=== PATIENT | male | born 1965 | race Caucasian/White ===

== ENCOUNTER 2020-02-16 18:06 | Emergency (ER) | payer OTHER ==
[~2020-02-16] VITALS: Ht 185.4 cm; Wt 127.0 kg
--- NOTE | ~2020-02-16 | PROC ---
[address] [address] PROCEDURE REPORT Name: LISA LAZO Room: [facility] JYOTSNA Cabezas#: [id number] Admission: 02/16/20 Attend Phys: Discharge: 02/16/20 Date of : 65 Report #: [id number] THIS REPORT FOR: //name// cc: FAM - No family physician/PCP FAM - No family physician/PCP ~ THIS REPORT FOR: //name// For GI report, please see the Provation report in Perceptive 7 content. By: 0656Medical Records Staff WILBERTO /DEBBI
[2020-02-16 18:29] LABS: ABSOLUTE BASOPHILS 0.2 thou/uL (0.0-0.2); ABSOLUTE EOSINOPHILS 0.4 thou/uL (0.0-0.7); ABSOLUTE LYMPHOCYTES 3.4 thou/uL (0.8-5.3); ABSOLUTE MONOCYTES 0.9 thou/uL (0.0-1.2); ABSOLUTE NEUTROPHILS 6.9 thou/uL (1.6-8.1); BASOPHILS 1.3 %; EOSINOPHILS 3.1 %; HEMATOCRIT 51.9 % (42.0-52.0); HEMOGLOBIN 17.7 gm/dL (14.0-18.0); LYMPHOCYTES 29.2 %; MCH 29.1 pg (26.0-34.0); MCHC 34.1 g/dL (28.0-37.0); MCV 85.2 fL (80.0-100.0); MONOCYTES 7.3 %; MPV 8.6 fl. (7.2-11.1); NUCLEATED RBCS 0 /100WBC; PLATELET COUNT* 222 thou/uL (150-400); POLYS 59.1 %; RBC 6.09 mil/uL (4.50-6.00); RDW-CV 14.5 % (10.5-14.5); WBC 11.7 thou/uL (4.0-11.0)
[2020-02-16 18:38] LABS: CALCIUM 8.6 mg/dL (8.5-10.1)
[2020-02-16 18:43] LABS: ALBUMIN 4.1 g/dL (3.4-5.0); TOTAL BILIRUBIN 0.4 mg/dL (<0.1-1.0); TOTAL PROTEIN 7.5 g/dL (6.4-8.2)
[2020-02-16 19:33] VITALS: BP 146/89
--- NOTE | 2020-02-17 11:02 | EKG ---
[place] [address] ELECTROCARDIOGRAM REPORT Name: LISA LAZO Room: [facility]#: [id number] Admission: 02/16/20 Attend Phys: Discharge: 02/16/20 Date of : 65 Date of Service: 02/16/201906 Report #: [id number] THIS REPORT FOR: //name// 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
--- NOTE | 2020-02-18 14:07 | PATH ---
[facility] [address] [place] [address] PATHOLOGY RPT PROCEDURE Name: ADAL LAZO Room: [facility] JYOTSNA Cabezas#: [id number] Admission: 02/16/20 Date of : 65 Discharge: 02/16/20 Report #: [id number] Path Case #: [id number] [facility] Accession Number: [id number] . 01 Material submitted: . esophagus - ESOPHAGEAL BIOPSIES R/O EOSINOPHIL ESOPHAGITIS . 01 Clinical history: . Rule out eosinophilic esophagitis . 02 Diagnosis: Esophageal biopsies: - Moderate chronic esophagitis typical of reflux. See comment. (CINTHIA:kellie; 02/18/2020) [facility] 02/18/2020 1057 [facility] . 02 Comment: Eosinophils are difficult to identify, averaging less than 1 per high power field and therefore eosinophilic (allergic) esophagitis is unlikely. Small fragments of benign skeletal muscle (food/meat) are also present. (CINTHIA:kellie; 02/18/2020) . 02 Electronically signed: . Fred Blancas MD, Pathologist NPI- [id number] . 01 Gross description: . The specimen is received in formalin, labeled "Adal Lazo, esophageal biopsies" and consists of multiple fragments of white-mcneill tissue measuring 0.4 x 0.3 x 0.2 cm in aggregate and are entirely submitted in A1. (JMF; 02/17/2020) JFQ/JFQ 02/17/2020 1536 Local . 02 Pathologist provided ICD-10: K20.9 . 02 CPT . 710787 Specimen Comment: A courtesy copy of this report has been sent to [phone] Specimen Comment: Report sent to Performed at: [address], [place] [id number] MD Rc Smith MD Phone: [phone] Performed at: 02 [facility] [address] [place], [place] [id number] [address] [address] PATHOLOGY RPT PROCEDURE Name: ADAL LAZO Room: [facility] JYOTSNA Cabezas#: [id number] Admission: 02/16/20 Date of : 65 Discharge: 02/16/20 Report #: [id number] Path Case #: [id number] MD Fred Blancas MD Phone: [phone]
--- NOTE | 2020-02-20 10:43 | CON ---
[address] [address] CONSULTATION Name: LISA LAZO Room: [facility] Jocelynn#: [id number] Admission: 02/16/20 Attend Phys: Discharge: 02/16/20 Date of : 65 Report #: [id number] THIS REPORT FOR: //name// cc: ERIC - No family physician/PCP [facility] - No family physician/PCP ~ THIS REPORT FOR: //name// CC: [facility] physician/PCP Renee Hurst DATE OF SERVICE: 02/16/2020 HISTORY OF PRESENT ILLNESS: This is a pleasant 54-year-old male with past medical history significant for hypertension and intermittent dysphagia, who is presenting with food bolus impaction. The patient reports having dinner and inability to swallow since then. The patient is unable to keep solids or liquids down. In the ER, the patient was given glucagon as well as Ativan and this did not relieve his symptoms. He denies any difficulty breathing. Denies prior episodes of food impaction. He does report intermittent dysphagia to solids for several years. This has been getting progressively worse over the course of years, dysphagia happens about twice a month. He denies any other alarm symptoms such as hematemesis, hematochezia, weight loss. PAST MEDICAL HISTORY: Hypertension. PAST SURGICAL HISTORY: The patient had gallbladder surgery, knee surgery. SOCIAL HISTORY: Denies smoking, takes alcohol intermittently. Denies any recreational drug use. FAMILY HISTORY: No family history of colon cancer, esophageal or gastric cancer. REVIEW OF SYSTEMS: A comprehensive 10-point review of systems is negative except for what was mentioned in the HPI. PHYSICAL EXAMINATION: GENERAL: The patient is alert, awake, oriented x 3. HEENT: Pupils are equal, round, reactive to light and accommodation. Mucous membranes are moist. There is no congestion. LUNGS: Clear to auscultation bilaterally. CARDIOVASCULAR: Rate and rhythm regular, S1, S2 present. ABDOMEN: Soft. There is no distention, guarding or rigidity. EXTREMITIES: Warm, well perfused. There is no edema. SKIN: [place] [address] CONSULTATION Name: VIOLETLISA Room: [facility]#: [id number] Admission: 02/16/20 Attend Phys: Discharge: 02/16/20 Date of : 65 Report #: [id number] ASSESSMENT AND PLAN: A pleasant 54-year-old gentleman presenting with food bolus impaction, proceed with EGD and extraction of the food bolus. Further recommendations will be based on results of the EGD. <ELECTRONICALLY SIGNED> By: Js Hurst MD 02/20/20 1043 08 19Js Hurst MD /nt
== END 2020-02-16 19:34 | disposition still patient (30) ==
LOC: M.GI 18:06 → M.ERS 18:06
PROVIDERS: Personal Emergency Response Attendant
DX: T17.228A Food in pharynx causing other injury, initial encounter (principal); I10 Essential (primary) hypertension; Z88.6 Allergy status to analgesic agent; X58.XXXA Exposure to other specified factors, initial encounter; Y93.89 Activity, other specified; Y92.89 Other specified places as the place of occurrence of the external cause; Y99.8 Other external cause status

== ENCOUNTER 2020-07-12 09:52 | Emergency (ER) | payer OTHER ==
[~2020-07-12] VITALS: Ht 182.9 cm; Wt 111.1 kg
[2020-07-12 11:07] LABS: ABSOLUTE BASOPHILS 0.1 thou/uL (0.0-0.2); ABSOLUTE EOSINOPHILS 0.3 thou/uL (0.0-0.7); ABSOLUTE LYMPHOCYTES 1.7 thou/uL (0.8-5.3); ABSOLUTE MONOCYTES 0.9 thou/uL (0.0-1.2); ABSOLUTE NEUTROPHILS 6.6 thou/uL (1.6-8.1); BASOPHILS 1.1 %; EOSINOPHILS 3.2 %; HEMATOCRIT 48.7 % (42.0-52.0); LYMPHOCYTES 17.8 %; MCH 29.9 pg (26.0-34.0); MCHC 34.9 g/dL (28.0-37.0); MCV 85.6 fL (80.0-100.0); MONOCYTES 9.2 %; MPV 8.7 fl. (7.2-11.1); NUCLEATED RBCS 0 /100WBC; PLATELET COUNT* 189 thou/uL (150-400); POLYS 68.7 %; RBC 5.69 mil/uL (4.50-6.00); RDW-CV 13.8 % (10.5-14.5); WBC 9.7 thou/uL (4.0-11.0)
[2020-07-12 11:26] LABS: POTASSIUM 4.1 mmol/L (3.5-5.1)
[2020-07-12 11:36] LABS: ALBUMIN 3.8 g/dL (3.4-5.0); TOTAL BILIRUBIN 0.6 mg/dL (<0.1-1.0)
[2020-07-12] MEDS ORDERED: TESSALON PERLE100 M1 PO (11:44)
[2020-07-12 12:14] VITALS: BP 169/100
--- NOTE | 2020-07-13 10:47 | EKG ---
[place] [address] ELECTROCARDIOGRAM REPORT Name: LISA LAZO Room: 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 : 1965 Requested By: Silviano Frost Order Number: [id number] MD: Aristides Davila Measurements Intervals [place] Rate: 81 P: 69 MS: 151 QRS: -14 QRSD: 93 T: 43 QT: 362 QTc: 421 Interpretive Statements Sinus rhythm Abnormal R-wave progression, early transition Compared to ECG 02/16/2020 19:07:15 Left ventricular hypertrophy no longer present Electronically Signed On 07-13-2020 10:47:31 CDT by Aristides Davila [email or web address] <ELECTRONICALLY SIGNED> By: Aristides Davila MD, [facility] 07/13/20 1047 0958 0958 Aristides Davila MD, [facility] /EPI
== END 2020-07-12 12:14 | disposition home or self-care (01) ==
LOC: M.ERS 09:52
PROVIDERS: Emergency Medicine Emergency Medical Services
DX: B34.9 Viral infection, unspecified (principal); R07.89 Other chest pain; Z20.828 Contact with and (suspected) exposure to other viral communicable diseases; I10 Essential (primary) hypertension; Z88.5 Allergy status to narcotic agent